=== PATIENT | male | born 1945 | race Caucasian/White ===

== ENCOUNTER 2017-08-22 16:08 | Emergency (ER) | payer OTHER ==
[~2017-08-22] VITALS: Ht 175.3 cm; Wt 89.4 kg
--- NOTE | ~2017-08-22 | EKG ---
[facility] [place] [address] ELECTROCARDIOGRAM REPORT Name: DANTE VALEAN A [id number] Admission: 08/22/17 Attend Phys: Discharge: 08/22/17 Date of : 47 Report #: [id number] THIS REPORT FOR: //name// [facility] ED Test Date: 2017-08-22 Test Time: 17:10:03 Pat Name: ROLAND VALE Department: Room: Gender: M Residential Designer: RUST : 1945 Requested By: Linda Armijo Order Number: [id number] MD: Cory Hadley Measurements Intervals [employer] Rate: 67 P: 44 OK: 186 QRS: -57 QRSD: 173 T: 53 QT: 419 QTc: 443 Interpretive Statements Sinus rhythm RBBB and LAFB LVH by voltage Septal [place] Compared to ECG 06/29/2013 16:44:43 Left ventricular hypertrophy now present Sinus tachycardia no longer present Electronically Signed On 08-23-2017 10:29:39 CDT by Cory Hadley [email or web address] <ELECTRONICALLY SIGNED> By: Cory Hadley MD 08/23/17 1029 1710 1710 MD ADRIANA Perera
[~2017-08-22 16:08] MED LIST: ACETAMINOPHEN325 M1 PO; ACETAMINOPHEN650 M5 PO; ADULT LOW DOSE81 MG PO; APAP500 PO; APAP650 PO; ASPIRIN325 PO; ATORVASTATIN CA40 MG PO; CARAFATE 1 GM TA1 GM PO; CARVEDILOL3.125 MG PO; CARVEDILOL6.25 MG PO; CHOLESTEROL MED; CLOPIDOGREL75 MG PO; COZAAR 25 MG TA25 M2 PO; CRESTOR20 MG PO; DM MED; EFFIENT10 MG PO; FERREX 150150 MG PO; FUROSEMIDE 40 M40 M1 PO; GLUCOPHAGE500 MG PO; HYDROCODON-ACE1 EAC7 PO; IRON325 PO; K-DUR10 MEQ PO; LEVEMIR SUBQ; MIRALAX255 GM PO; MOM; MOM PO; MULTI-DAY PLUS1 EACH PO; NOVOLOG100 UNIT/1 SUBQ; PERCOCET 5-3251 EACH PO; PERCOCET PO; PRAVASTATIN SOD10 MG; PRILOSEC 20 MG20 MG PO; REGLAN 10 MG TA10 MG PO; ZOFRAN4 MG PO
[2017-08-22 16:51] LABS: BASOPHILS 1.8 % (0.0-2.0); EOSINOPHILS 4.4 % (0.0-3.0); HEMATOCRIT 41.4 % (42.0-52.0); HEMOGLOBIN 14.5 gm/dL (14.0-18.0); LYMPHOCYTES 28.5 % (24.0-44.0); MCH 33.2 pg (26.0-34.0); MONOCYTES 7.3 % (1.0-8.0); PLATELET COUNT 316 thou/uL (150-400); RBC 4.35 mil/uL (4.50-6.00); RDW 13.6 % (10.5-14.5); WBC 8.5 thou/uL (4.0-11.0)
[2017-08-22 16:57] LABS: ANION GAP 9 mmol/L (7-16); BUN 14 mg/dL (7-18); CALCIUM 9.6 mg/dL (8.5-10.1); CHLORIDE 98 mmol/L (98-107); CO2 28 mmol/L (21-32); CREATININE 1.3 mg/dL (0.7-1.3); GLUCOSE 272 mg/dL (74-106); POTASSIUM 4.2 mmol/L (3.5-5.1); SODIUM 135 mmol/L (136-145)
[2017-08-22 17:06] LABS: TROPONIN-I < 0.04 ng/mL (<0.06)
[2017-08-22] MEDS ORDERED: ASPIRIN EC325 M1 PO (17:36)
== END 2017-08-22 18:06 | disposition home or self-care (01) ==
LOC: ER 16:08
PROVIDERS: Emergency Medicine
DX: R42 Dizziness and giddiness (principal); E11.9 Type 2 diabetes mellitus without complications; I10 Essential (primary) hypertension; E78.00 Pure hypercholesterolemia, unspecified; Z90.49 Acquired absence of other specified parts of digestive tract; Z88.6 Allergy status to analgesic agent; Z88.1 Allergy status to other antibiotic agents; Z88.8 Allergy status to other drugs, medicaments and biological substances; Z87.891 Personal history of nicotine dependence; Z79.4 Long term (current) use of insulin

== ENCOUNTER 2017-08-30 14:54 | Inpatient (IN) | payer OTHER ==
[~2017-08-30] VITALS: Ht 175.3 cm; Wt 85.0 kg
--- NOTE | ~2017-08-30 | HC ---
[facility] [place] [address] CONSULTATION Name: ROLAND VALE Room #: 216-P [facility]..#: [id number] Admission: 08/30/17 Attend Phys: Daniel Cervantes MD Discharge: 09/02/17 Date of : 47 Report #: [id number] THIS REPORT FOR: //name// CC: Daniel Elizondo DATE OF SERVICE: 08/31/2017 HISTORY OF PRESENT ILLNESS: This is a 71-year-old male patient who was evaluated by me for an episode of speech difficulty and some right facial droop. This came spontaneously, and it was moderately severe and then it resolved. The patient was discussed with Emergency Room physician who saw the patient in the Emergency Room, and the patient himself provided history. I discussed the patient with the nurses looking after this patient. The patient's symptoms are somewhat unusual. He thinks his symptoms are because of metformin he takes. This morning, he was having some nausea, vomiting, but was not having any dizziness. His dizziness is gone. REVIEW OF SYSTEMS: Indicates that he had a similar episode of dizziness about 8 days ago. There was no slurred speech at that time. He has multiple other problems. He had a prior history of stent. He has a history of diabetes. He has a history of hypertension and high cholesterol. He denies any prior history of stroke. He does have a history of cholecystectomy. He had a history of [place]. This was his relevant 14-point review of systems. He was nauseous when I saw him. He indicated he took some pill, which made him nauseous. Otherwise, he was not complaining of any new eye, ENT, cardiac, respiratory, , musculoskeletal, constitutional, dermatological, hematological, psychiatric, throat, allergic symptom associated with present symptomatology. PAST MEDICAL HISTORY: Negative for any stroke. FAMILY HISTORY: Negative for any early age stroke. SOCIAL HISTORY: He does not smoke or drink now. PHYSICAL EXAMINATION: Indicates he is alert. He is responsive. He can follow simple commands. His speech, concentration, fund of knowledge and memory are at his baseline. Cranial nerve examination 2-12 is unremarkable. His strength, sensation, reflexes and tone are symmetrical. There is no cerebellar sign. I could not have a very good look at the fundus because he is nauseous and is not able to cooperate. He is a reasonably well-built individual who does not have any dysmorphic features of eyes, ears and face. His vision and hearing look adequate. His pulses are somewhat difficult to feel, but he has no edema, cyanosis or jaundice. His cardiac examination does not appear to be showing any definite abnormality. No respiratory difficulty was noticed in this patient, and there was not any significant rhonchi on either side. [address] [address] CONSULTATION Name: ROLAND VALE Room #: 216-P [facility] IN M.R.#: [id number] Admission: 08/30/17 Attend Phys: Daniel Cervantes MD Discharge: 09/02/17 Date of : 47 Report #: [id number] VITAL SIGNS: His blood pressure is 152/79, respirations 16, pulse is 62, temperature is 98.6. LABORATORY DATA: His white count is 9.3. His CT angiography was done and that showed atherosclerotic disease, but it appeared to be less than 50%. He is already on aspirin and Plavix. IMPRESSION: 1. Symptoms suggestive of transient ischemic attack in the left internal carotid artery distribution. 2. Basilar artery is somewhat narrow, but appeared to be patent and it is unlikely to be the etiology of the patient's symptoms, but need to be excluded. 3. He is having so many symptoms. It is not even certain how much of symptoms are because of transient ischemic attack and how much is because of something else. I talked to him and I told him that he needs further workup and he is agreeable to that. His last lipid profile has indicated a cholesterol of 160 and that also need to be worked up. RECOMMENDATIONS: 1. MRI of the brain and MRA of the head and neck. We will go ahead and do the MRA also to look at the basilar artery as well as carotid with another imaging study. 2. Echocardiogram. 3. Repeat lipid profile. 4. He is already on aspirin and Plavix from cardiology perspective, and we can continue that for the time being. 5. If he has further symptoms, then further workup and management can be done, but this patient was never a TPA candidate because he had a TIA. Even if he has a stroke, he is not a candidate for any intervention at the moment until he has more pronounced symptoms, but he does need further workup. All of it was discussed with the patient, and he is agreeable with this plan, and we will follow this plan. Thank you very much for this referral, and the patient was discussed with the nurses looking after this patient. <ELECTRONICALLY SIGNED> By: Magno Beltre MD 09/09/17 1648 1102 1211 Magno Beltre MD /nt
--- NOTE | ~2017-08-30 | EKG ---
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[facility] : 1945 Requested By: Oleksandr Campbell Order Number: [id number] MD: Walter Valverde Measurements Intervals [place] Rate: 69 P: 36 MI: 176 QRS: -55 QRSD: 170 T: 47 QT: 414 QTc: 444 Interpretive Statements Sinus rhythm RBBB and LAFB Septal [place], age indeterminate Compared to ECG 08/22/2017 17:10:03 No significant change was found Electronically Signed On 08-31-2017 12:59:40 CDT by Walter Valverde [email or web address] <ELECTRONICALLY SIGNED> By: Walter Valverde MD, [facility] 08/31/17 1259 1517 151 Walter Valverde MD, [facility] /EPI
--- NOTE | ~2017-08-30 | HC ---
[facility] [place] [address] CONSULTATION Name: ROLAND VALE Room #: 216-P [facility]..#: [id number] Admission: 08/30/17 Attend Phys: Daniel Cervantes MD Discharge: 09/02/17 Date of : 47 Report #: [id number] THIS REPORT FOR: //name// CC: Daniel Elizondo DATE OF SERVICE: 09/02/2017 INDICATION: Cardiomyopathy. HISTORY OF PRESENT ILLNESS: This is a 71-year-old gentleman with a history of MIs, PCI, CABG, ischemic cardiomyopathy, diabetes mellitus, presenting with a TIA. About a week before admission, he reported to the ER with complaints of left-sided weakness. By the time he arrived to the Emergency Room, his weakness had resolved. He was supposed to take Plavix and aspirin. However, he was not taking Plavix, has a history of noncompliance. Then, a week later while eating at a restaurant, he felt dizziness and weakness. His reported that he started to mumble and the right side of his face drooped. This resolved within 10 minutes as well. He was admitted for recurrent TIA. From a cardiac standpoint, he offers no complaints of angina or dyspnea. However, it is difficult to assess his functional capacity. An echo reveals EF in the 30%-35% range, with mild to moderate aortic stenosis. There is no history of any congestive symptoms. MEDICATIONS AT HOME: Unclear at this time, he was taking aspirin, insulin regimen, Crestor 20 mg and carvedilol 3.125. PAST MEDICAL HISTORY: Initial anterior VA in 12/2012, although he presented a day after his initial onset of symptoms. Four months later, he presented with unstable symptoms, he did undergo 4-vessel CABG. History of diabetes mellitus, hypertension, hypercholesterolemia and history of noncompliance. ALLERGIES: NSAIDs and RAMIPRIL. SOCIAL HISTORY: Denies tobacco use. FAMILY HISTORY: Negative for premature CAD. REVIEW OF SYSTEMS: A full 10-point review of systems performed. Only the pertinent positives and negatives are described in the HPI. PHYSICAL EXAMINATION: VITAL SIGNS: Blood pressure is 140/80, heart rate is 63 beats per minute. GENERAL APPEARANCE: This is a mildly overweight male in no acute distress. HEENT: Normocephalic, atraumatic. Oral mucosa moist. [address] [address] CONSULTATION Name: ROLAND VALE Room #: 216-P [facility] IN M.R.#: [id number] Admission: 08/30/17 Attend Phys: Daniel Cervantes MD Discharge: 09/02/17 Date of : 47 Report #: [id number] NECK: Supple. LUNGS: Clear to auscultation. CARDIAC: Regular rate and rhythm; S1, S2 positive; 1/6 systolic murmur. ABDOMEN: Soft, nontender. EXTREMITIES: No cyanosis, no edema. IMAGING: ECG reveals sinus rhythm, right bundle-branch block, anteroseptal VA. LABORATORY VALUES: White count is 8.4, hemoglobin is 13.6, creatinine is 0.9. ASSESSMENT AND PLAN: 1. Ischemic cardiomyopathy, he has a known history of ejection fraction in the 35% range. He offers no complaints of congestion. He was only taking carvedilol, was previously prescribed losartan, which he apparently is not taking. He was given losartan in the hospital, which dropped his pressure. At this time, I would continue with carvedilol only. 2. Coronary artery disease/myocardial infarction/coronary artery bypass graft, stable with no angina symptoms. We will follow up with an ischemic evaluation as an outpatient. Continue with aspirin. 3. Transient ischemic attack, he was not taking Plavix and this will be prescribed. We will proceed with an outpatient event monitor, may require an implantable monitor as well to rule out PAF in view of his history of recurrent transient ischemic attack. 4. Hypertension, the blood pressure is stable at this time. It dropped with 1 dose of losartan. 5. Hypercholesterolemia, continue with statin therapy. 6. Diabetes, continue with his insulin regimen. <ELECTRONICALLY SIGNED> By: Cory Hadley MD 09/03/17 0801 0859 1015 Cory Hadley MD /nt
--- NOTE | ~2017-08-30 | 2DMMODE ---
[facility] [address] [place] [address] 2 D/M-MODE ECHOCARDIOGRAM Name: ROLAND VALE Room #: 216-P [facility] IN [facility]#: [id number] Admission: 08/30/17 Attend Phys: Daniel Cervantes MD Discharge: Date of : 47 Date of Service: 09/01/17 1230 Report #: [id number] THIS REPORT FOR: //name// APPROVED REPORT Study performed: 09/01/2017 11:07:38 EXAM: Comprehensive 2D, Doppler, and color-flow Echocardiogram Patient Location: Echo lab Room #: [facility] Status: routine BSA: 2.01 HR: 61 bpm BP: 145/81 mmHg Other Information Study Quality: Good Indications Diabetes Murmur CAD Hypertension/HDD 2D Dimensions RVDd: 30.34 mm LVEF(%): 48.51 (>50%) IVSd: 12.64 (7-11mm) LVOT Diam: 22.51 (18-24mm) LVDd: 47.43 mm PWd: 11.58 (7-11mm) Ascending Ao: 32.87 (22-36mm) LVDs: 35.84 (25-40mm) Aortic Root: 30.46 mm Marques's LVEF: 48.51 % Volumes Left Atrial Volume (Systole) Single Plane 4CH: 56.15 mL Single Plane 2CH: 59.35 mL LA ESV Index: 32.00 mL/m2 Aortic Valve AoV Peak Sahil.: 2.33 m/s AO Peak Gr.: 21.73 mmHg LVOT Max P.27 mmHg AO Mean Gr.: 11.05 mmHg LVOT Mean P.25 mmHg AO V2 Mean: 1.56 m/s LVOT Max V: 0.75 m/s AO V2 VTI: 47.43 cm LVOT Mean V: 0.52 m/s [facility] [address] [employer] [place] [address] 2 D/M-MODE ECHOCARDIOGRAM Name: ROLAND VALE Room #: 216-P [facility] IN .R.#: [id number] Admission: 08/30/17 Attend Phys: Daniel Cervantes MD Discharge: Date of : 47 Date of Service: 09/01/17 1230 Report #: [id number] CARLYN (VTI): 1.33 cm2 LVOT V1 VTI: 15.90 cm CARLYN Vmax: 1.29 cm2 SV (LVOT): 63.24 mL Mitral Valve E/A Ratio: 0.8 MV Decel. Time: 302.17 ms MV E Max Sahil.: 0.57 m/s MV A Sahil.: 0.69 m/s MV PHT: 87.63 ms IVRT: 162.63 ms Pulmonary Valve PV Peak Sahil.: 1.22 m/s PV Peak Gr.: 5.98 mmHg Pulmonary Vein P Vein S: 0.60 m/s P Vein A: 0.11 m/s P Vein D: 0.37 m/s P Vein A Dur.: 107.3 msec P Vein S/D Ratio: 1.62 Left Ventricle The left ventricle is normal size. Mild concentric left ventricular hypertrophy. Left ventricular systolic function is moderately decreased. LVEF is 30-35%. Mild diastolic dysfunction is present (impaired relaxation pattern). Right Ventricle The right ventricle is normal size. Right ventricle is hypokinetic. Atria The left atrium size is normal. The right atrium size is normal. Aortic Valve The Aortic valve is sclerotic. No aortic regurgitation is present. There is mild to moderate valvular aortic stenosis. Calculated aortic valve area is 1.3 cm2 with maximum pressure gradient of 22 mmHg and mean pressure gradient of 11 mmHg. Mitral Valve The mitral valve is normal in structure. Trace mitral regurgitation. No evidence of mitral valve stenosis. Tricuspid Valve The tricuspid valve is normal in [place] [address] 2 D/M-MODE ECHOCARDIOGRAM Name: ROLAND VALE Room #: 216-P [facility] IN M.R.#: [id number] Admission: 08/30/17 Attend Phys: Daniel Cervantes MD Discharge: Date of : 47 Date of Service: 09/01/17 1230 Report #: [id number] regurgitation. Unable to assess PA pressure. Pulmonic Valve The pulmonary valve is normal in structure. Mild pulmonic regurgitation. Great Vessels The aortic root is normal in size. IVC is not visualized. Pericardium There is no pericardial effusion. <Conclusion> The left ventricle is normal size. Mild concentric left ventricular hypertrophy. LVEF is 30-35%. Mild diastolic dysfunction is present (impaired relaxation pattern). The right ventricle is normal size. The Aortic valve is sclerotic. There is mild to moderate valvular aortic stenosis. Calculated aortic valve area is 1.3 cm2 with maximum pressure gradient of 22 mmHg and mean pressure gradient of 11 mmHg. Trace mitral regurgitation. The tricuspid valve is normal in structure. There is no pericardial effusion. <ELECTRONICALLY SIGNED> By: Bernardo Murillo MD, FACC 09/01/17 1230 1230 1230 Bernardo Murillo MD, FACC /INF
[2017-08-30 14:54] VITALS: BP 90/54
[~2017-08-30 14:54] MED LIST changes: +ASPIRIN EC325 M1 PO
[2017-08-30 15:25] LABS: ABSOLUTE NEUTROPHILS 5.5 thou/uL (1.4-8.2); BASOPHILS 0.8 % (0.0-2.0); EOSINOPHILS 3.7 % (0.0-3.0); HEMATOCRIT 42.1 % (42.0-52.0); HEMOGLOBIN 14.6 gm/dL (14.0-18.0); LYMPHOCYTES 25.9 % (24.0-44.0); MCH 33.2 pg (26.0-34.0); MCHC 34.8 g/dL (28.0-37.0); MCV 95.5 fL (80.0-100.0); MONOCYTES 6.3 % (1.0-8.0); PLATELET COUNT 315 thou/uL (150-400); POLYS 63.3 % (36.0-66.0); RBC 4.41 mil/uL (4.50-6.00); RDW 13.3 % (10.5-14.5); WBC 8.7 thou/uL (4.0-11.0)
[2017-08-30 15:34] LABS: ANION GAP 11 mmol/L (7-16); BUN 19 mg/dL (7-18); CALCIUM 9.5 mg/dL (8.5-10.1); CHLORIDE 99 mmol/L (98-107); CO2 26 mmol/L (21-32); CREATININE 1.2 mg/dL (0.7-1.3); GLUCOSE 308 mg/dL (74-106); POTASSIUM 4.1 mmol/L (3.5-5.1); SODIUM 136 mmol/L (136-145)
[2017-08-30 15:43] LABS: ALBUMIN 3.3 g/dL (3.4-5.0); SGOT 15 U/L (15-37); SGPT 18 U/L (30-65); TOTAL BILIRUBIN 0.9 mg/dL (<0.1-1.0); TOTAL PROTEIN 7.7 g/dL (6.4-8.2); TROPONIN-I < 0.04 ng/mL (<0.06)
[2017-08-30 16:06] LABS: APTT 23.7 Seconds (24.5-32.8); PROTIME 9.4 Seconds (9.3-11.4)
[2017-08-30 17:48] VITALS: BP 131/53
[2017-08-30 18:10] VITALS: BP 124/69
[2017-08-30 19:47] VITALS: BP 148/83
[2017-08-31] VITALS (7 sets, daily range): BP systolic 110–152; BP diastolic 58–84
[2017-08-31 04:04] LABS: CALCIUM 9.1 mg/dL (8.5-10.1); CREATININE 0.9 mg/dL (0.7-1.3); POTASSIUM 3.4 mmol/L (3.5-5.1)
[2017-08-31 04:33] LABS: HEMOGLOBIN 13.4 gm/dL (14.0-18.0); MCH 32.8 pg (26.0-34.0); MCHC 34.3 g/dL (28.0-37.0); MCV 95.6 fL (80.0-100.0); RBC 4.08 mil/uL (4.50-6.00); RDW 13.3 % (10.5-14.5); WBC 9.3 thou/uL (4.0-11.0)
[2017-09-01 04:19] LABS: BASOPHILS 1.5 % (0.0-2.0); EOSINOPHILS 4.7 % (0.0-3.0); HEMATOCRIT 39.7 % (42.0-52.0); HEMOGLOBIN 13.8 gm/dL (14.0-18.0); LYMPHOCYTES 36.9 % (24.0-44.0); MCH 33.4 pg (26.0-34.0); MCHC 34.8 g/dL (28.0-37.0); MCV 96.1 fL (80.0-100.0); MONOCYTES 8.4 % (1.0-8.0); PLATELET COUNT 299 thou/uL (150-400); POLYS 48.5 % (36.0-66.0); RBC 4.13 mil/uL (4.50-6.00); RDW 13.4 % (10.5-14.5); WBC 8.2 thou/uL (4.0-11.0)
[2017-09-01 04:22] VITALS: BP 127/68
[2017-09-01 04:24] LABS: CALCIUM 9.3 mg/dL (8.5-10.1); CREATININE 0.9 mg/dL (0.7-1.3); POTASSIUM 3.5 mmol/L (3.5-5.1)
[2017-09-01 07:20] VITALS: BP 145/81
[2017-09-01 10:50] VITALS: BP 120/69
[2017-09-01 15:33] VITALS: BP 91/52
[2017-09-01 19:33] VITALS: BP 131/66
[2017-09-02 04:01] VITALS: BP 144/80
[2017-09-02 05:22] LABS: ABSOLUTE NEUTROPHILS 4.3 thou/uL (1.4-8.2); BASOPHILS 2.3 % (0.0-2.0); EOSINOPHILS 5.9 % (0.0-3.0); HEMATOCRIT 39.2 % (42.0-52.0); HEMOGLOBIN 13.6 gm/dL (14.0-18.0); LYMPHOCYTES 32.1 % (24.0-44.0); MCHC 34.7 g/dL (28.0-37.0); MCV 95.2 fL (80.0-100.0); MONOCYTES 8.7 % (1.0-8.0); PLATELET COUNT 297 thou/uL (150-400); RBC 4.12 mil/uL (4.50-6.00); RDW 13.3 % (10.5-14.5); WBC 8.4 thou/uL (4.0-11.0)
[2017-09-02 05:56] LABS: ANION GAP 8 mmol/L (7-16); BUN 15 mg/dL (7-18); CALCIUM 9.5 mg/dL (8.5-10.1); CHLORIDE 102 mmol/L (98-107); CHOLESTEROL 205 mg/dL (<200); CO2 26 mmol/L (21-32); CREATININE 0.9 mg/dL (0.7-1.3); GLUCOSE 223 mg/dL (74-106); HDL CHOLESTEROL 40 mg/dL (>40); LDL CHOLESTEROL 131 mg/dL (<100); POTASSIUM 3.7 mmol/L (3.5-5.1); SODIUM 136 mmol/L (136-145); TC:HDL 5.1 Ratio (Not establshd); TRIGLYCERIDE 170 mg/dL (<150); VLDL 34 mg/dL (<40)
[2017-09-02 06:09] LABS: SERUM ASSESSMENT Clear
[2017-09-02 06:21] LABS: TSH 2.613 uIU/mL (0.358-3.740)
[2017-09-02 07:05] VITALS: BP 161/88
[2017-09-02 09:26] VITALS: BP 113/67
[2017-09-02 09:27] VITALS: BP 101/60
[2017-09-02] MEDS ORDERED: COREG6.25 MG PO (10:24)
[2017-09-02] MEDS ORDERED: GLIPIZIDE 10 MG10 MG PO (10:24)
[2017-09-02] MEDS ORDERED: ASPIRIN325 PO (10:25)
[2017-09-02] MEDS ORDERED: ATORVASTATIN CA40 MG PO ×3 (10:25→11:55)
[2017-09-02] MEDS ORDERED: CLOPIDOGREL75 MG PO (11:06)
[2017-09-02 11:28] VITALS: BP 101/60; BP 125/7
== END 2017-09-02 13:46 | disposition home or self-care (01) | DRG 69 ==
LOC: ER 14:54 → EROBS 17:34 → 2N 17:34 → ENTRNSPT 09-02 13:33 → EDTRNSPTSTS 09-02 13:36 → 2N 09-02 13:46
PROVIDERS: Emergency Medicine; Hospitalist; Psychiatry & Neurology Neuromuscular Medicine
PROC: B24BZZ4 Ultrasonography of Heart with Aorta, Transesophageal (ICD-10-PCS; principal; 2017-09-01)
DX: G45.9 Transient cerebral ischemic attack, unspecified (principal); I50.20 Unspecified systolic (congestive) heart failure; E11.9 Type 2 diabetes mellitus without complications; I25.5 Ischemic cardiomyopathy; I11.0 Hypertensive heart disease with heart failure; I25.10 Atherosclerotic heart disease of native coronary artery without angina pectoris; R01.1 Cardiac murmur, unspecified; E78.00 Pure hypercholesterolemia, unspecified; I25.2 Old myocardial infarction; Z90.49 Acquired absence of other specified parts of digestive tract; Z95.5 Presence of coronary angioplasty implant and graft; Z95.1 Presence of aortocoronary bypass graft; Z79.4 Long term (current) use of insulin; Z79.82 Long term (current) use of aspirin; Z79.02 Long term (current) use of antithrombotics/antiplatelets; Z79.84 Long term (current) use of oral hypoglycemic drugs; Z79.899 Other long term (current) drug therapy; Z87.891 Personal history of nicotine dependence; Z88.8 Allergy status to other drugs, medicaments and biological substances; Z23 Encounter for immunization
CPT/HCPCS: 10081

== ENCOUNTER 2017-09-08 11:40 | Inpatient (IN) | payer OTHER ==
[~2017-09-08] VITALS: Ht 175.3 cm; Wt 85.4 kg
--- NOTE | ~2017-09-08 | HC ---
[facility] [place] [address] CONSULTATION Name: ROLAND VALE Room #: 349-I ADM IN ..#: [id number] Admission: 09/08/17 Attend Phys: Donato Warner MD Discharge: Date of : 47 Report #: [id number] THIS REPORT FOR: //name// CC: Donato Elizondo DATE OF SERVICE: 09/09/2017 HISTORY OF PRESENT ILLNESS: The patient is a 71-year-old male who was recently admitted with a TIA being discharged on 09/02/2017. He ended being readmitted with right-sided visual changes, aphasia and right-sided weakness. He has been evaluated by Neurology. MRI scan showed an acute recent lacunar type infarct, left basal ganglia. He does have 50% stenosis of left carotid artery. He is undergoing a AMANDA. His blood pressure is being monitored to maintain appropriate cerebral perfusion. He does have right-sided weakness with functional deficits and visual changes and we are seeing him in rehabilitation medicine consultation. PAST MEDICAL HISTORY: Includes a prior mini stroke/TIA. He does have diabetes mellitus type 2, coronary artery bypass graft in 2013, CHF, cardiomyopathy. PAST SURGICAL HISTORY: Includes a cholecystectomy as well as the CABG as noted above. ALLERGIES: NONSTEROIDALS, VANCOMYCIN AND RAMIPRIL. HABITS: Former tobacco, quit greater than a year ago. Alcohol on special occasions. SOCIAL HISTORY: The patient lives in a house with his , 2 steps in, 12 inside, second floor bedroom. Did not utilize assistive devices premorbidly. does not work outside the home. REVIEW OF SYSTEMS: Did not offer any complaints of chest pain, shortness of breath, abdominal discomfort. Biggest frustration is the right-sided weakness. PHYSICAL EXAMINATION: GENERAL: He is a pleasant 71-year-old male, in no obvious distress. He speaks good German. VITAL SIGNS: Last recorded temperature is 97.6, pulse 70, respirations 20, blood pressure 130/67. NEUROLOGIC: He is alert, oriented, pleasant, cooperative. He has a slightly depressed right nasolabial fold. EOMs appeared to be full. He does have what appears to be a right upper quadrant hemianopsia more than the right lower quadrant to confrontation. He is able to verbalize his basic needs, no obvious word finding deficits. He has functional range of motion and strength of the [facility] [address] [place] [address] CONSULTATION Name: ROLAND VALE Room #: 349-I ADM IN M.R.#: [id number] Admission: 09/08/17 Attend Phys: Donato Warner MD Discharge: Date of : 47 Report #: [id number] left upper and left lower extremity without obvious focal weakness. DTRs are 1. Right upper extremity, he has some clumsiness. Proximal strength is a grade 3 to 3+, distally is more of a grade 2+ to 3- He has a very poor computer aided design operator. Very limited dexterity of that right hand with definite clumsiness with attempted movement. He is weak and wrist extension less than antigravity. As far as the right lower extremity, he has functional range of motion. Strength is probably grade 4-/5. DTRs are 1. There is no clonus. Negative Bland's. Sensory examination was reasonably intact to simultaneous stimulation both upper and lower extremities. Functionally, he has been contact guard with sit to stand. Gait, min assist 10 feet. He has some right knee instability and is noted to be dragging his right foot. ASSESSMENT: A 71-year-old right-handed male with the following problem list: 1. Acute/recent lacunar infarct, left basal ganglia. 2. Right hemiparesis, upper extremity greater than lower extremity. 3. Right homonymous hemianopsia. Appears to have more of the right upper quadrantanopia. 4. Previously noted aphasia, appears to be improving. We will need to have speech therapy involved. 5. A 50% stenosis of left carotid artery. Workup continues. 6. History of coronary artery disease with prior coronary artery bypass graft. 7. Diabetes mellitus. 8. Hyperlipidemia. 9. Hypertension. PLAN: We will add speech therapy to evaluate. Therapies to further assess regarding his functional deficits. We would certainly recommend an acute in-hospital inpatient rehabilitation stay as he further medically stabilizes. Discussion with physical therapy earlier today. We will be glad to follow along with you regarding his rehab therapy needs. By: 1456 18 Saroj Puente MD /RADHA
--- NOTE | ~2017-09-08 | HC ---
[facility] [place] [address] CONSULTATION Name: ROLAND VALE Room #: 349-I ADM IN .R.#: [id number] Admission: 09/08/17 Attend Phys: Donato Warner MD Discharge: Date of : 47 Report #: [id number] THIS REPORT FOR: //name// CC: Donato Elizondo DATE OF SERVICE: 09/08/2017 HISTORY OF PRESENT ILLNESS: This is a 71-year-old male patient who was initially seen by me in the Emergency Room and subsequently I saw him again this evening. This patient was admitted with what looks like pretty prominent symptoms on the right side as well as speech difficulty. His symptoms were severe right hemianopsia, aphasia and right hemiplegia. The patient just had a full workup recently and he was having dizziness and was even having some issues with speech difficulty. His symptoms deteriorated in the Emergency Room and his blood pressure was running about 110 systolic. He was being prepared to give TPA, but then his symptoms resolved. When I saw him second time, he also had no symptoms and he was without any symptom. REVIEW OF SYSTEMS: Indicate that he has recently been admitted with similar symptoms. He does have about 50% stenosis of the left carotid artery. He is already on aspirin, Plavix and statin. His blood pressure fluctuates. I do not think he takes blood pressure meds very properly or on a regular basis. Positive for similar episode and he had this episode in spite of being on aspirin and Plavix, does have a history of diabetes. This was a relevant 14-point review of system. PAST MEDICAL HISTORY: Positive for this episode for which he was admitted. FAMILY HISTORY: Unremarkable. SOCIAL HISTORY: He indicates that he does not drink any alcohol except on special occasions and he does not smoke. PHYSICAL EXAMINATION: The patient's examination was carried out numerous times and his final examination was, he was alert and responsive. His speech, concentration, fund of knowledge and memory was at his baseline. Cranial nerve examination 2-12 was unremarkable. Initially, he had no aphasia. Initially, he had some hemianopsia, but subsequently no hemianopsia. His reflexes were symmetrical. His cardiac examination is unremarkable. Respiratory examination is unremarkable. When I saw him, his blood pressure was low, but then it came up and symptoms correlated with the increase in blood pressure. IMPRESSION: This patient has symptoms suggestive of ischemic disease in the left cerebral hemisphere. He has only 50% stenosis, which is borderline to do any intervention. I think the plan should be to keep his blood pressure [facility] [address] [place] [address] CONSULTATION Name: ROLAND VALE Room #: 349-I ADM IN ..#: [id number] Admission: 09/08/17 Attend Phys: Donato Warner MD Discharge: Date of : 47 Report #: [id number] somewhat high. RECOMMENDATIONS: Presently, we will observe him and see if any symptoms reoccur and I discussed all his options with him including the TPA option. He wants to follow this conservative approach and we will do that. More than 50 minutes of time was spent taking care of this patient today and majority of the time was spent counseling this patient on multiple aspects of the care in this patient. Thank you very much. <ELECTRONICALLY SIGNED> By: Magno Beltre MD 09/09/17 1648 24 2239 Magno Beltre MD /nt
--- NOTE | ~2017-09-08 | TEE ---
[facility] [address] [address] TRANSESOPHAGEAL ECHOCARDIOGRAM Name: ROLAND VALE Room #: 349-I ADM IN M.R.#: [id number] Admission: 09/08/17 Attend Phys: Donato Warner, Discharge: Date of : 47 Date of Service: 09/09/17 0841 Report #: [id number] THIS REPORT FOR: //name// APPROVED REPORT Study performed: 09/09/2017 07:47:48 EXAM: Transesophageal Echocardiogram Patient Location: [facility] Room #: 349 Status: routine BSA: 2.01 HR: 67 bpm BP: 122/67 mmHg Rhythm: NSR Other Information Study Quality: Good Indications Aortic Valve Disease CVA/TIA Cardiomyopathy Echo Enhancing Agent Indication: Rule out Shunt Agent(s) / Amount(s) Used: Agitated Saline 7 cc Procedure After obtaining informed consent, patient underwent transesophageal echo in the [employer]. Type of Sedation : Conscious Sedation Sedation was administered by Aleah Tovar RN. Sedation start time: 754 Case end Time: 800 Sedation was achieved intravenously with: Versed (2) Fentanyl (50) Transesophageal probe was inserted and advanced into esophagus without difficulty by Walter Valverde MD. Echo enhancement indication: R/O Septal defect. Echo enhancement agent administered: Agitated Saline The AMANDA was performed without complications. Throughout the procedure, the blood pressure, pulse oximetry, cardiac rhythm, and rate were monitored. The patient tolerated the procedure without adverse effects. Recovery from conscious sedation was uneventful and vital signs were [facility] [address] [place] [address] TRANSESOPHAGEAL ECHOCARDIOGRAM Name: AKANKSHAROLAND Room #: 349-I [facility] IN M.R.#: [id number] Admission: 09/08/17 Attend Phys: Donato Warner, Discharge: Date of : 47 Date of Service: 09/09/17 0841 Report #: [id number]. Left Ventricle The left ventricle is normal size. Mild concentric left ventricular hypertrophy. Left ventricular systolic function is mildly decreased. LVEF 45-50%. Mild diastolic dysfunction is present (impaired relaxation pattern). Right Ventricle The right ventricle is normal size. The right ventricular systolic function is normal. Atria Left atrium is dilated. No masses or clots in the left atrium or left atrial appendage No shunting by contrast bubble injection. The right atrium size is normal. Aortic Valve The aortic valve is moderately calcified, trileaflet No aortic regurgitation is present. Mild to moderate aortic stenosis. Mitral Valve The mitral valve is normal in structure. No mitral regurgitation. No evidence of mitral valve stenosis. Tricuspid Valve The tricuspid valve is normal in structure. Trace tricuspid regurgitation. Pulmonic Valve The pulmonary valve is normal in structure. Mild pulmonic regurgitation. Great Vessels The aortic root is normal in size. The ascending aorta is normal in size. Pericardium There is no pericardial effusion. <Conclusion> Left ventricular systolic function is mildly decreased. LVEF 45-50%. Left atrium is dilated. No masses or clots in the left atrium or left atrial appendage No shunting by contrast bubble injection. [facility] [address] [place] [address] TRANSESOPHAGEAL ECHOCARDIOGRAM Name: ROLAND VALE Room #: 349-I ADM IN .R.#: [id number] Admission: 09/08/17 Attend Phys: Donato Warner, Discharge: Date of : 47 Date of Service: 09/09/17840 Report #: [id number] The aortic valve is moderately calcified, trileaflet. Mild to moderate aortic stenosis. No aortic regurgitation The mitral valve is normal in structure. No mitral regurgitation. The ascending aorta is normal in size. Mild atherosclerotic changes There is no pericardial effusion. <ELECTRONICALLY SIGNED> By: Walter Valverde MD, FACC 09/09/17840 0 0 Walter Valverde MD, FACC /INF
--- NOTE | ~2017-09-08 | EKG ---
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
[~2017-09-08 11:40] MED LIST changes: +COREG6.25 MG PO; +GLIPIZIDE 10 MG10 MG PO
[2017-09-08 12:06] VITALS: BP 112/62
[2017-09-08 12:20] LABS: HEMATOCRIT 40.3 % (42.0-52.0); HEMOGLOBIN 14.2 gm/dL (14.0-18.0); MCH 33.7 pg (26.0-34.0); MCHC 35.3 g/dL (28.0-37.0); MCV 95.5 fL (80.0-100.0); RBC 4.22 mil/uL (4.50-6.00); RDW 12.9 % (10.5-14.5); WBC 9.8 thou/uL (4.0-11.0)
[2017-09-08 12:22] LABS: POC CA IONIZED 4.4 mg/dL (4.5-5.3); POC CREATININE 0.9 mg/dL (0.6-1.3); POC HEMOGLOBIN 14.3 g/dL (14.0-18.0); POC POTASSIUM 4.6 mmol/L (3.5-5.1)
[2017-09-08 12:29] LABS: ANION GAP 7 mmol/L (7-16); BUN 17 mg/dL (7-18); CALCIUM 9.4 mg/dL (8.5-10.1); CHLORIDE 100 mmol/L (98-107); CO2 28 mmol/L (21-32); CREATININE 1.2 mg/dL (0.7-1.3); GLUCOSE 302 mg/dL (74-106); POTASSIUM 4.9 mmol/L (3.5-5.1); SODIUM 135 mmol/L (136-145)
[2017-09-08 12:32] LABS: APTT 27.2 Seconds (24.5-32.8); PROTIME 9.9 Seconds (9.3-11.4)
[2017-09-08 12:35] LABS: TROPONIN-I < 0.04 ng/mL (<0.06)
[2017-09-08 16:30] VITALS: BP 136/76
[2017-09-08 17:06] VITALS: BP 141/77
[2017-09-08 20:00] VITALS: BP 128/59
[2017-09-09] VITALS (12 sets, daily range): BP systolic 101–146; BP diastolic 60–83
[2017-09-09 05:40] LABS: HEMOGLOBIN 13.4 gm/dL (14.0-18.0); MCH 32.9 pg (26.0-34.0); MCHC 34.3 g/dL (28.0-37.0); MCV 96.1 fL (80.0-100.0); RBC 4.06 mil/uL (4.50-6.00); RDW 12.8 % (10.5-14.5); WBC 12.4 thou/uL (4.0-11.0)
[2017-09-09 05:42] LABS: CALCIUM 9.1 mg/dL (8.5-10.1); CREATININE 0.9 mg/dL (0.7-1.3); MAGNESIUM 1.5 mg/dL (1.8-2.4); POTASSIUM 4.2 mmol/L (3.5-5.1)
[2017-09-10] VITALS (7 sets, daily range): BP systolic 129–160; BP diastolic 70–82
[2017-09-10 05:39] LABS: CALCIUM 8.9 mg/dL (8.5-10.1); CREATININE 0.9 mg/dL (0.7-1.3); MAGNESIUM 1.5 mg/dL (1.8-2.4); POTASSIUM 3.6 mmol/L (3.5-5.1)
[2017-09-10 05:43] LABS: HEMATOCRIT 37.7 % (42.0-52.0); HEMOGLOBIN 12.8 gm/dL (14.0-18.0); MCH 32.7 pg (26.0-34.0); MCHC 33.8 g/dL (28.0-37.0); MCV 96.6 fL (80.0-100.0); RBC 3.9 mil/uL (4.50-6.00); RDW 13.3 % (10.5-14.5); WBC 9.6 thou/uL (4.0-11.0)
[2017-09-11 03:20] VITALS: BP 151/71
[2017-09-11 05:17] LABS: HEMATOCRIT 39.4 % (42.0-52.0); HEMOGLOBIN 13.5 gm/dL (14.0-18.0); MCH 32.8 pg (26.0-34.0); MCHC 34.2 g/dL (28.0-37.0); RBC 4.1 mil/uL (4.50-6.00); RDW 13.2 % (10.5-14.5); WBC 11.7 thou/uL (4.0-11.0)
[2017-09-11 05:29] LABS: CALCIUM 9.5 mg/dL (8.5-10.1); CREATININE 0.8 mg/dL (0.7-1.3); MAGNESIUM 1.4 mg/dL (1.8-2.4); POTASSIUM 3.5 mmol/L (3.5-5.1)
[2017-09-11 07:51] VITALS: BP 162/76
[2017-09-11 11:30] VITALS: BP 142/74
[2017-09-11] MEDS ORDERED: TYLENOL325 MG PO (13:06)
[2017-09-11] MEDS ORDERED: ENOXAPARIN40 MG/0.1 SUBQ (13:06)
[2017-09-11 15:00] VITALS: BP 148/79
== END 2017-09-11 18:15 | DRG 62 ==
LOC: ER 11:40 → 3W 13:57 → EROBS 13:57 → 3W 16:54
PROVIDERS: Emergency Medicine; Internal Medicine
PROC: 3E04317 Introduction of Other Thrombolytic into Central Vein, Percutaneous Approach (ICD-10-PCS; principal; 2017-09-08)
PROC: B24BZZ4 Ultrasonography of Heart with Aorta, Transesophageal (ICD-10-PCS; 2017-09-09)
PROC: 5A1935Z Respiratory Ventilation, Less than 24 Consecutive Hours (ICD-10-PCS; 2017-09-09)
DX: I63.9 Cerebral infarction, unspecified (principal); I42.9 Cardiomyopathy, unspecified; G81.91 Hemiplegia, unspecified affecting right dominant side; I50.22 Chronic systolic (congestive) heart failure; H53.461 Homonymous bilateral field defects, right side; E78.5 Hyperlipidemia, unspecified; I25.10 Atherosclerotic heart disease of native coronary artery without angina pectoris; I11.0 Hypertensive heart disease with heart failure; I25.5 Ischemic cardiomyopathy; I65.21 Occlusion and stenosis of right carotid artery; M10.9 Gout, unspecified; E11.9 Type 2 diabetes mellitus without complications; Z88.1 Allergy status to other antibiotic agents; Z88.8 Allergy status to other drugs, medicaments and biological substances; Z95.1 Presence of aortocoronary bypass graft; Z90.49 Acquired absence of other specified parts of digestive tract; Z87.891 Personal history of nicotine dependence
CPT/HCPCS: 10879

== ENCOUNTER 2017-09-11 11:57 | Inpatient (IN) | payer OTHER ==
[~2017-09-11] VITALS: Ht 175.3 cm; Wt 83.3 kg
--- NOTE | ~2017-09-11 | PLAN ---
[place] [address] REHAB UNIT PLAN OF CARE Name: ROLAND VALE Room #: 515-P ADM IN M.R.#: [id number] Admission: 09/11/17 Attend Phys: Saroj Puente MD Discharge: Date of : 47 Report #: [id number] THIS REPORT FOR: //name// CC: Saroj Elizondo DATE OF SERVICE: 09/13/2017 SUBJECTIVE: The patient was seen in followup. He was seen earlier, was in no distress. OBJECTIVE: Temperature 36.9, pulse 88, respirations 20, blood pressure 110/58. He is noted to have dense right-sided hemiparesis. Transfers are max assist. He has been unable to ambulate. Bed mobility, mod assist, lower body dressing dependent. Speech therapy has mild comprehensive deficits, mechanical soft diet with thin liquids. ASSESSMENT: 1. Acute recent lacunar infarct, left basal ganglia. 2. Right hemiparesis. 3. Right hemianopsia. 4. Aphasia. 5. Coronary artery disease, status post history of CABG grafting. 6. Hypertension. 7. Hyperlipidemia. 8. Diabetes mellitus. type 2. 9. History of gout. 10. Electrolyte abnormalities. PLAN: The overall plan of care is based on the preadmission screen, post-admission physician evaluation and information garnered from therapy assessments. 1. Estimated length of stay is probably at least 3 weeks and likely longer as he is at a lower functional level. 2. Medical prognosis is reasonably good. 3. Anticipated interventions includes the interdisciplinary acute inpatient rehabilitation program with PT, OT, speech working with him, rehab nursing manager regarding medication management, skin care prophylaxis, bowel and bladder issues and nursing education. We will have the interdisciplinary team involved and the ergonomics consultant physicians. 4. Anticipated functional outcomes would be to hopefully achieve independence at a wheelchair level at least initially and then progress from there. 5. Discharge destination would be to try to get him back to the home setting where he lives in a house with his . 6. Expected therapy by discipline includes PT and OT and speech 1 hour per day [address] [address] REHAB UNIT PLAN OF CARE Name: AKANKSHAROLAND Room #: 515-P [facility] IN M.R.#: [id number] Admission: 09/11/17 Attend Phys: Saroj Puente MD Discharge: Date of : 47 Report #: [id number] each five days a week throughout the duration of the acute inpatient rehabilitation stay. <ELECTRONICALLY SIGNED> By: aSroj Puente MD 09/17/17 1504 1223 1759 Saroj Puente MD /PMT
--- NOTE | ~2017-09-11 | HC ---
[facility] [place] [address] CONSULTATION Name: ROLAND VALE Room #: 515-P [facility] IN M.R.#: [id number] Admission: 09/11/17 Attend Phys: Saroj Puente MD Discharge: Date of : 47 Report #: [id number] THIS REPORT FOR: //name// CC: Saroj Elizondo DATE OF SERVICE: 09/14/2017 NEUROBEHAVIORAL STATUS EXAM ATTENDING PHYSICIAN: Saroj Puente MD MINERAL SURVEYOR: Mitchell Hager PhD CLINICAL PRESENTATION: The patient is a 71-year-old male admitted to [facility] for comprehensive inpatient rehabilitation program to improve functional mobility, activities of daily living and self-care and mental status secondary to deficits from a cerebrovascular accident. He has a several week history of multiple TIAs that eventually resulted in a more acute vascular event. His medical history includes type 2 diabetes, coronary artery bypass graft in 2013, congestive heart failure and cardiomyopathy. His admission assessment also includes a right hemiparesis, lacunar infarct in the left basal ganglia, right hemianopsia, aphasia, hypotension, hyperlipidemia and electrolyte abnormalities along with a history of gout. A complete description of his medical condition and history can be found in his medical record. Neuropsychological consultation was requested to provide assistance in the assessment of cognitive and emotional status and to provide recommendations and services. Prior to this most recent medical event, he was living independently in his home with his . He has 2 children. One child lives within the [place] area and one in [place]. 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 He does not have a history of alcohol/drug abuse or prior treatment for mood disorder. TECHNIQUES UTILIZED: Clinical interview, review of medical records, staff consultation and behavioral observation, mini mental and family interview -- daughter and , mini mental status exam 2 standard version. EXAMINATION FINDINGS: The patient was alert and cooperative with the assessment. He accurately described the reason for his hospitalization. There is no evidence of aphasia, but rather dysarthria. Auditory comprehension was within normal limits. He presents with a flaccid right upper extremity and the right lower extremity. He does not have an amnesia surrounding his admission. [facility] [address] [place] [address] CONSULTATION Name: ROLAND VALE Room #: 515-P [facility] IN M.R.#: [id number] Admission: 09/11/17 Attend Phys: Saroj Puente MD Discharge: Date of : 47 Report #: [id number] He is described as having periods of increased anxiety as he is concerned about his recovery and ability to return to independent living. There is no report from family or patient of difficulty with memory, concentration, sleep or appetite. An improvement in cognition has been noted by the family throughout his recovery. His performance on the MMSE 2 brief version is within normal limits with a raw score of 14/16. He was 3/3 for initial registration, 5/5 for orientation to time, 4/[address] and 2/3 for immediate recall of 3 items after a brief time delay and distraction. Performance declined on the MMSE 2 standard version to a raw score of 24/30. He was 2/5 for serial 7's. Sustained concentration was effortful and difficult with serial 7's. Naming, repetition and auditory comprehension were within normal limits. He was able to read and follow a single command. The patient was able to dictate a sentence. As a result of right upper extremity weakness, he was not asked to construct or engage in visual spatial construction. 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 Unspecified anxiety disorder. RECOMMENDATIONS: The patient will benefit with further neuropsychological testing upon discharge home as an outpatient to clarify the severity of cognitive deficits. The assessment should be approximately 3 months post-stroke. He will need assistance in the management of medication and nutrition to ensure safety. Driving will need to be discontinued until a more full recovery is obtained and abilities assessed. Recognition of achieved goals will assist self confidence. Thank you very much for allowing me to provide the consultation on this patient. <ELECTRONICALLY SIGNED> By: Mitchell Hager, PhD 09/18/17 1931 1530 Mitchell Hager, PhD /nt
--- NOTE | ~2017-09-11 | H ---
[facility] [place] [address] HISTORY AND PHYSICAL Name: ROLAND VALE Room #: 515-P ADM IN M.R.#: [id number] Admission: 09/11/17 Attend Phys: Saroj Puente MD Discharge: Date of : 47 Report #: [id number] THIS REPORT FOR: //name// CC: Saroj Elizondo DATE OF SERVICE: 09/11/2017 CHIEF COMPLAINT:CVA Admission history and physical for inpatient rehabilitation. HISTORY OF PRESENT ILLNESS: This is a 71-year-old gentleman, admitted on 09/09/2017 to [facility] with complaints of right-sided weakness, aphasia and right-sided visual changes. MRI scan showed acute recent lacunar type infarct of the left basal ganglia. He was evaluated by Neurology. He was found to have 50% stenosis of the left carotid artery. He underwent AMANDA with ejection fraction 45-50%. No masses or clots in the atria and no shunting. He had an exacerbation of his symptoms when his systolic blood pressure dropped to 110 after receiving a beta reuben. No surgical interventions are warranted. Neurology recommends blood pressure control and aggressive treatment of his diabetes and hyperlipidemia. He will continue on Plavix. Due to remaining right hemiparesis and weakness He is discharged to inpatient rehab for further therapies. Today, he is seen in his room and expresses concern for his right side of his body, unable to move. He reports some mild pain in his right upper extremity that he feels a spasm-type pain. He denies needing any medication for it. He denies dizziness or headache. He continues to report right-sided visual defects. He did note some coughing with thin liquids when using a straw this morning with speech therapy. Otherwise, denies shortness of breath or chest pain. No nausea or constipation. No numbness or tingling. He is having no voiding difficulties. PAST MEDICAL HISTORY: TIA, type 2 diabetes, coronary artery bypass graft in 2014, congestive heart failure, cardiomyopathy. PAST SURGICAL HISTORY: Cholecystectomy as well as CABG above. ALLERGIES: NONSTEROIDALS, lincomycin, ramipril . SOCIAL HISTORY: He lives in a house with his . Bedroom is on the second floor. He has 2 steps to enter and 12 steps inside. He used no assistive devices premorbidly. His does not work outside the home. He quit smoking a little over one year ago. He is a nondrinker. He is a full code status. CURRENT MEDICATIONS: Vitamin B12 of 1000 mcg daily subQ for 7 days, Plavix 75 mg daily, glipizide 10 mg in the morning, Humalog sliding [place] [address] HISTORY AND PHYSICAL Name: ROLAND VALE Room #: 515-P [facility] IN M.R.#: [id number] Admission: 09/11/17 Attend Phys: Saroj Puente MD Discharge: Date of : 47 Report #: [id number] bedtime, Lovenox 40 mg subcutaneous at bedtime, Lipitor 80 mg at bedtime. Glucagon and dextrose p.r.n. Carvedilol 3.125 mg twice a day, is currently on hold. Tylenol 650 q. 4 hours p.r.n., senna 1 tablet daily p.r.n., Colace 100 mg twice a day p.r.n. REVIEW OF SYSTEMS: Remainder of his 12-point review of systems negative except as listed in HPI. PHYSICAL EXAMINATION: VITAL SIGNS: Blood pressure 108/64, temperature 37.4, pulse 74, respirations 18, pulse ox 99% saturation on room air. GENERAL: He is awake. He is alert and oriented x 4, very pleasant gentleman. He appears in no acute distress. NEUROLOGICAL: Slightly depressed right nasolabial fold, right upper quadrant hemianopsia, mild dysarthria, right upper and right lower extremity flaccid. Left upper and left lower extremity, he has functional range of motion. There is no clonus. He has mild cognitive and memory deficits. He scored 26/30 on the MoCA. He was mod assist for sit to stand and assist x 2 for bilateral lower extremity dressing. HEART: Regular rate and rhythm. He has a positive murmur. CHEST: Lungs are clear to auscultation bilaterally. No crackles, no wheeze. ABDOMEN: Bowel sounds are positive. He is soft, nontender, nondistended. EXTREMITIES: No edema, 2+ pedal pulses. SKIN: Warm, dry and intact. No wounds or rash. LABORATORY DATA: On 09/12/2017, sodium 134, potassium 3.7, BUN 9, creatinine 0.8, magnesium 1.7, calcium 9.2, glucose 210. Vitamin B12 of 195. WBC is 10.4, hemoglobin 14.0, hematocrit 40.2, platelets 349. Uric acid 3.9. ASSESSMENT: 1. Recent lacunar infarct, left basal ganglia CVA. 2. Right hemiparesis. 3. Right hemianopsia. 4. Dysphagia. 5. Coronary artery disease, status post history of coronary artery bypass grafting. 6. Hypotension. 7. Hyperlipidemia. 8. Type 2 diabetes mellitus. 9. History of gout. 10. Electrolyte abnormalities. PLAN: The patient has been admitted to inpatient rehabilitation to involve interdisciplinary therapy approach. We will continue to have the hospitalist [address] [place] [address] HISTORY AND PHYSICAL Name: AKANKSHAROLAND Room #: 515-P ADM IN M.R.#: [id number] Admission: 09/11/17 Attend Phys: Saroj Puente MD Discharge: Date of : 47 Report #: [id number] team manage his multiple comorbidities along with having Neurology follow for any further recommendations. <ELECTRONICALLY SIGNED> By: KRISTEL Mayer 09/15/17 1352 1248 1347 KRISTEL Mayer /nt
[2017-09-11] MEDS ORDERED: TYLENOL325 MG PO (13:06)
[2017-09-11] MEDS ORDERED: ENOXAPARIN40 MG/0.1 SUBQ (13:06)
[2017-09-11 18:05] VITALS: BP 123/63
[2017-09-11 19:55] VITALS: BP 137/77
[2017-09-12 06:20] LABS: HEMATOCRIT 40.2 % (42.0-52.0); MCH 33.2 pg (26.0-34.0); MCHC 34.7 g/dL (28.0-37.0); MCV 95.5 fL (80.0-100.0); RBC 4.21 mil/uL (4.50-6.00); RDW 13.1 % (10.5-14.5); WBC 10.4 thou/uL (4.0-11.0)
[2017-09-12 06:33] LABS: CALCIUM 9.2 mg/dL (8.5-10.1); CREATININE 0.8 mg/dL (0.7-1.3); MAGNESIUM 1.7 mg/dL (1.8-2.4); POTASSIUM 3.7 mmol/L (3.5-5.1)
[2017-09-12 07:35] VITALS: BP 108/64
[2017-09-12 20:30] VITALS: BP 130/66
[2017-09-13 01:11] LABS: GLYCOHEMOGLOBIN (HGB A1C) 9.1 % (4.8-5.6)
[2017-09-13 06:24] LABS: ABSOLUTE NEUTROPHILS 7.2 thou/uL (1.4-8.2); BASOPHILS 0.8 % (0.0-2.0); EOSINOPHILS 1.9 % (0.0-3.0); HEMATOCRIT 37.8 % (42.0-52.0); HEMOGLOBIN 12.8 gm/dL (14.0-18.0); LYMPHOCYTES 22.1 % (24.0-44.0); MCH 32.7 pg (26.0-34.0); MCV 96.2 fL (80.0-100.0); MONOCYTES 11.7 % (1.0-8.0); PLATELET COUNT 337 thou/uL (150-400); POLYS 63.5 % (36.0-66.0); RBC 3.92 mil/uL (4.50-6.00); RDW 13.4 % (10.5-14.5); WBC 11.4 thou/uL (4.0-11.0)
[2017-09-13 06:34] LABS: CALCIUM 9.1 mg/dL (8.5-10.1); CREATININE 0.9 mg/dL (0.7-1.3); MAGNESIUM 1.7 mg/dL (1.8-2.4); POTASSIUM 3.5 mmol/L (3.5-5.1)
[2017-09-13 08:01] VITALS: BP 110/58
[2017-09-13 15:00] LABS: BF NUCLEATED CELLS 9747; BF RBC 16272
[2017-09-13 15:02] LABS: CLARITY CLOUDY; COLOR ORANGE
[2017-09-13 15:03] LABS: SOURCE RT KNEE
[2017-09-13 16:07] LABS: BF CRYSTALS No Crystals seen
[2017-09-13 16:14] LABS: BF MACROPHAGE 19; BF NEUTROPHILS 79
[2017-09-13 20:00] VITALS: BP 103/54
[2017-09-14 08:00] VITALS: BP 120/63
[2017-09-14 19:50] VITALS: BP 161/69
[2017-09-15 07:45] VITALS: BP 116/69
[2017-09-15 20:00] VITALS: BP 154/68
[2017-09-16 05:33] LABS: BASOPHILS 0.9 % (0.0-2.0); HEMATOCRIT 35.2 % (42.0-52.0); HEMOGLOBIN 12.1 gm/dL (14.0-18.0); LYMPHOCYTES 26.3 % (24.0-44.0); MCH 33.2 pg (26.0-34.0); MCHC 34.4 g/dL (28.0-37.0); MCV 96.6 fL (80.0-100.0); MONOCYTES 11.5 % (1.0-8.0); PLATELET COUNT 419 thou/uL (150-400); POLYS 58.3 % (36.0-66.0); RBC 3.64 mil/uL (4.50-6.00); WBC 8.5 thou/uL (4.0-11.0)
[2017-09-16 05:36] LABS: CALCIUM 9.3 mg/dL (8.5-10.1); MAGNESIUM 1.9 mg/dL (1.8-2.4); POTASSIUM 4.1 mmol/L (3.5-5.1)
[2017-09-16 09:11] VITALS: BP 112/57
[2017-09-16 19:58] VITALS: BP 148/77
[2017-09-17 07:50] VITALS: BP 121/55
[2017-09-17 19:40] VITALS: BP 124/63
[2017-09-18 07:55] VITALS: BP 116/62
[2017-09-18 14:29] LABS: HEMATOCRIT 37.9 % (42.0-52.0); HEMOGLOBIN 12.7 gm/dL (14.0-18.0); MCH 32.6 pg (26.0-34.0); MCHC 33.6 g/dL (28.0-37.0); MCV 97.1 fL (80.0-100.0); RBC 3.91 mil/uL (4.50-6.00); WBC 11.6 thou/uL (4.0-11.0)
[2017-09-18 14:39] LABS: CALCIUM 9.7 mg/dL (8.5-10.1); CREATININE 1.1 mg/dL (0.7-1.3); MAGNESIUM 1.8 mg/dL (1.8-2.4); POTASSIUM 3.8 mmol/L (3.5-5.1)
[2017-09-18 19:32] VITALS: BP 141/75
[2017-09-19 08:45] VITALS: BP 107/61
[2017-09-19 19:35] VITALS: BP 115/56
[2017-09-20 09:08] VITALS: BP 117/76
[2017-09-20 19:40] VITALS: BP 110/70
[2017-09-21 10:35] VITALS: BP 109/68
[2017-09-21 20:00] VITALS: BP 95/49
[2017-09-22 08:00] VITALS: BP 93/50
[2017-09-22 19:35] VITALS: BP 123/66
[2017-09-23 08:45] VITALS: BP 96/57
[2017-09-23 19:10] VITALS: BP 135/80
[2017-09-24 04:31] LABS: ABSOLUTE NEUTROPHILS 4.2 thou/uL (1.4-8.2); BASOPHILS 1.8 % (0.0-2.0); EOSINOPHILS 3.7 % (0.0-3.0); HEMATOCRIT 38.8 % (42.0-52.0); HEMOGLOBIN 13.3 gm/dL (14.0-18.0); MCH 32.9 pg (26.0-34.0); MCHC 34.3 g/dL (28.0-37.0); MCV 96.1 fL (80.0-100.0); MONOCYTES 7.2 % (1.0-8.0); PLATELET COUNT 561 thou/uL (150-400); POLYS 49.3 % (36.0-66.0); RBC 4.04 mil/uL (4.50-6.00); RDW 12.9 % (10.5-14.5); WBC 8.4 thou/uL (4.0-11.0)
[2017-09-24 04:35] LABS: CALCIUM 9.7 mg/dL (8.5-10.1); CREATININE 1.1 mg/dL (0.7-1.3); MAGNESIUM 1.7 mg/dL (1.8-2.4); POTASSIUM 4.1 mmol/L (3.5-5.1)
[2017-09-24 08:05] VITALS: BP 101/55
[2017-09-24 20:00] VITALS: BP 115/64
[2017-09-25 08:17] VITALS: BP 103/59
[2017-09-25 20:33] VITALS: BP 114/62
[2017-09-26 06:01] LABS: EOSINOPHILS 3.3 % (0.0-3.0); HEMATOCRIT 37.3 % (42.0-52.0); HEMOGLOBIN 12.7 gm/dL (14.0-18.0); LYMPHOCYTES 39.9 % (24.0-44.0); MCH 32.5 pg (26.0-34.0); MCHC 34.1 g/dL (28.0-37.0); MCV 95.3 fL (80.0-100.0); MONOCYTES 6.6 % (1.0-8.0); PLATELET COUNT 581 thou/uL (150-400); POLYS 48.2 % (36.0-66.0); RBC 3.91 mil/uL (4.50-6.00); WBC 8.3 thou/uL (4.0-11.0)
[2017-09-26 06:14] LABS: CALCIUM 9.4 mg/dL (8.5-10.1); MAGNESIUM 1.5 mg/dL (1.8-2.4); POTASSIUM 4.1 mmol/L (3.5-5.1)
[2017-09-26 10:40] VITALS: BP 111/60
[2017-09-26 20:12] VITALS: BP 108/65
[2017-09-27 08:00] VITALS: BP 102/53
[2017-09-28 09:15] VITALS: BP 103/58
[2017-09-28 19:28] VITALS: BP 121/58
[2017-09-29 04:17] LABS: ABSOLUTE NEUTROPHILS 4.3 thou/uL (1.4-8.2); BASOPHILS 0.7 % (0.0-2.0); EOSINOPHILS 2.6 % (0.0-3.0); HEMATOCRIT 39.2 % (42.0-52.0); HEMOGLOBIN 13.4 gm/dL (14.0-18.0); LYMPHOCYTES 41.8 % (24.0-44.0); MCH 32.7 pg (26.0-34.0); MCHC 34.1 g/dL (28.0-37.0); MCV 95.8 fL (80.0-100.0); MONOCYTES 6.3 % (1.0-8.0); POLYS 48.6 % (36.0-66.0); RBC 4.09 mil/uL (4.50-6.00); RDW 12.9 % (10.5-14.5); WBC 8.9 thou/uL (4.0-11.0)
[2017-09-29 04:20] LABS: PLATELET COUNT 501 thou/uL (150-400)
[2017-09-29 04:28] LABS: CALCIUM 9.4 mg/dL (8.5-10.1); CREATININE 0.9 mg/dL (0.7-1.3); POTASSIUM 4.1 mmol/L (3.5-5.1)
[2017-09-29 08:00] VITALS: BP 90/58
[2017-09-29 19:25] VITALS: BP 134/66
[2017-09-30 08:00] VITALS: BP 103/57
[2017-09-30 19:34] VITALS: BP 130/67
[2017-10-01 05:00] VITALS: BP 118/64
[2017-10-01 07:15] VITALS: BP 121/62
[2017-10-01 19:10] VITALS: BP 119/60
[2017-10-02 07:46] VITALS: BP 120/63
[2017-10-02 19:58] VITALS: BP 107/52
[2017-10-03 08:10] VITALS: BP 120/72
[2017-10-03 20:30] VITALS: BP 110/69
[2017-10-04 07:30] VITALS: BP 122/70
[2017-10-04 20:00] VITALS: BP 114/68
[2017-10-05 07:35] VITALS: BP 114/70
[2017-10-05 20:00] VITALS: BP 127/72
[2017-10-06 06:10] LABS: ABSOLUTE NEUTROPHILS 4.2 thou/uL (1.4-8.2); BASOPHILS 1.1 % (0.0-2.0); EOSINOPHILS 3.8 % (0.0-3.0); HEMATOCRIT 37.1 % (42.0-52.0); HEMOGLOBIN 12.7 gm/dL (14.0-18.0); MCH 32.7 pg (26.0-34.0); MCHC 34.3 g/dL (28.0-37.0); MCV 95.3 fL (80.0-100.0); MONOCYTES 7.3 % (1.0-8.0); PLATELET COUNT 383 thou/uL (150-400); POLYS 51.8 % (36.0-66.0); RBC 3.89 mil/uL (4.50-6.00); RDW 13.3 % (10.5-14.5); WBC 8.1 thou/uL (4.0-11.0)
[2017-10-06 06:19] LABS: CALCIUM 9.3 mg/dL (8.5-10.1); CREATININE 0.8 mg/dL (0.7-1.3); MAGNESIUM 1.3 mg/dL (1.8-2.4); POTASSIUM 3.6 mmol/L (3.5-5.1)
[2017-10-06 08:00] VITALS: BP 123/59
[2017-10-06] MEDS ORDERED: VITAMIN D1000 UNI1 PO ×2 (08:47→09:37)
[2017-10-06] MEDS ORDERED: METFORMIN HCL500 MG PO ×2 (08:47→09:37)
[2017-10-06] MEDS ORDERED: PROTONIX40 M1 PO ×2 (08:47→09:37)
[2017-10-06] MEDS ORDERED: MAGOX 400400 MG PO ×2 (08:47→09:37)
[2017-10-06] MEDS ORDERED: VITAMIN B-12500 MCG PO ×2 (08:47→09:37)
[2017-10-06] MEDS ORDERED: LIDOPATCH1 EACH TRANSDERM ×2 (08:47→09:37)
[2017-10-06] MEDS ORDERED: CLOPIDOGREL75 MG PO ×2 (08:47→09:37)
[2017-10-06] MEDS ORDERED: ATORVASTATIN CA40 MG PO ×2 (08:47→09:37)
[2017-10-06] MEDS ORDERED: GLUCOTROL5 MG PO ×2 (08:47→09:37)
== END 2017-10-06 13:35 | DRG 56 ==
PROVIDERS: Family Medicine; Internal Medicine; Nurse Practitioner; Orthopaedic Surgery Sports Medicine; Physical Medicine & Rehabilitation
PROC: 0S9C3ZZ Drainage of Right Knee Joint, Percutaneous Approach (ICD-10-PCS; principal; 2017-09-13)
DX: G81.91 Hemiplegia, unspecified affecting right dominant side (principal); I63.9 Cerebral infarction, unspecified; I42.9 Cardiomyopathy, unspecified; R47.01 Aphasia; H53.47 Heteronymous bilateral field defects; I25.10 Atherosclerotic heart disease of native coronary artery without angina pectoris; E78.5 Hyperlipidemia, unspecified; E11.9 Type 2 diabetes mellitus without complications; M10.9 Gout, unspecified; I50.9 Heart failure, unspecified; I11.0 Hypertensive heart disease with heart failure; I95.9 Hypotension, unspecified; R41.9 Unspecified symptoms and signs involving cognitive functions and awareness; F41.9 Anxiety disorder, unspecified; R53.81 Other malaise; M25.561 Pain in right knee; E83.42 Hypomagnesemia; E53.8 Deficiency of other specified B group vitamins; M25.462 Effusion, left knee; M25.461 Effusion, right knee; M25.531 Pain in right wrist; R19.7 Diarrhea, unspecified; Z95.1 Presence of aortocoronary bypass graft; Z90.49 Acquired absence of other specified parts of digestive tract; Z88.8 Allergy status to other drugs, medicaments and biological substances; Z87.891 Personal history of nicotine dependence; Z79.899 Other long term (current) drug therapy; R13.10 Dysphagia, unspecified
CPT/HCPCS: 10112

== ENCOUNTER → 2019-03-30 | Outpatient (CLI) | payer OTHER ==
[~2019-03-30] MED LIST changes: +ENOXAPARIN40 MG/0.1 SUBQ; +GLUCOTROL5 MG PO; +LIDOPATCH1 EACH TRANSDERM; +LISINOPRIL2.5 MG PO; +MAGOX 400400 MG PO; +METFORMIN HCL500 MG PO; +PROTONIX40 M1 PO; +SPIRONOLACTONE25 M1 PO; +TYLENOL325 MG PO; +VITAMIN B-121000 MCG PO; +VITAMIN B-12500 MCG PO; +VITAMIN D1000 UNI1 PO; +VOLTAREN GEL 1100 G2 TOP
== END ==
LOC: HYPER 07:16
DX: T81.89XD Other complications of procedures, not elsewhere classified, subsequent encounter (principal); E11.621 Type 2 diabetes mellitus with foot ulcer; L97.412 Non-pressure chronic ulcer of right heel and midfoot with fat layer exposed; L89.613 Pressure ulcer of right heel, stage 3; I70.235 Atherosclerosis of native arteries of right leg with ulceration of other part of foot; L97.511 Non-pressure chronic ulcer of other part of right foot limited to breakdown of skin; E11.40 Type 2 diabetes mellitus with diabetic neuropathy, unspecified; I25.10 Atherosclerotic heart disease of native coronary artery without angina pectoris; I25.2 Old myocardial infarction; I11.0 Hypertensive heart disease with heart failure; I50.20 Unspecified systolic (congestive) heart failure; I42.9 Cardiomyopathy, unspecified; I69.90 Unspecified sequelae of unspecified cerebrovascular disease; M62.81 Muscle weakness (generalized); M10.9 Gout, unspecified; R26.2 Difficulty in walking, not elsewhere classified; R54 Age-related physical debility; Z95.1 Presence of aortocoronary bypass graft; Z87.891 Personal history of nicotine dependence; Z79.84 Long term (current) use of oral hypoglycemic drugs; Z79.82 Long term (current) use of aspirin; Y83.8 Other surgical procedures as the cause of abnormal reaction of the patient, or of later complication, without mention of misadventure at the time of the procedure

== ENCOUNTER → 2019-04-13 | Outpatient (CLI) | payer OTHER ==
[~2019-04-13] MED LIST changes: +ASA81BEC PO
== END ==
LOC: HYPER 08:00
DX: T81.89XD Other complications of procedures, not elsewhere classified, subsequent encounter (principal); E11.621 Type 2 diabetes mellitus with foot ulcer; I70.235 Atherosclerosis of native arteries of right leg with ulceration of other part of foot; L97.511 Non-pressure chronic ulcer of other part of right foot limited to breakdown of skin; E11.40 Type 2 diabetes mellitus with diabetic neuropathy, unspecified; I10 Essential (primary) hypertension; I25.2 Old myocardial infarction; I25.10 Atherosclerotic heart disease of native coronary artery without angina pectoris; I42.9 Cardiomyopathy, unspecified; I69.90 Unspecified sequelae of unspecified cerebrovascular disease; M10.9 Gout, unspecified; M62.81 Muscle weakness (generalized); R54 Age-related physical debility; R26.2 Difficulty in walking, not elsewhere classified; Z95.1 Presence of aortocoronary bypass graft; Z79.82 Long term (current) use of aspirin; Z79.84 Long term (current) use of oral hypoglycemic drugs; Z87.891 Personal history of nicotine dependence; Y83.8 Other surgical procedures as the cause of abnormal reaction of the patient, or of later complication, without mention of misadventure at the time of the procedure

== ENCOUNTER → 2019-04-27 | Outpatient (CLI) | payer OTHER | LOC: HYPER 10:27 | DX: T81.89XD Other complications of procedures, not elsewhere classified, subsequent encounter (principal); E11.621 Type 2 diabetes mellitus with foot ulcer; L97.412 Non-pressure chronic ulcer of right heel and midfoot with fat layer exposed; L89.613 Pressure ulcer of right heel, stage 3; I70.235 Atherosclerosis of native arteries of right leg with ulceration of other part of foot; L97.511 Non-pressure chronic ulcer of other part of right foot limited to breakdown of skin; I70.345 Atherosclerosis of unspecified type of bypass graft(s) of the left leg with ulceration of other part of foot; L97.521 Non-pressure chronic ulcer of other part of left foot limited to breakdown of skin; I69.90 Unspecified sequelae of unspecified cerebrovascular disease; E11.40 Type 2 diabetes mellitus with diabetic neuropathy, unspecified; I10 Essential (primary) hypertension; I25.10 Atherosclerotic heart disease of native coronary artery without angina pectoris; I25.2 Old myocardial infarction; M62.81 Muscle weakness (generalized); I42.9 Cardiomyopathy, unspecified; M10.9 Gout, unspecified; R26.2 Difficulty in walking, not elsewhere classified; R54 Age-related physical debility; Z95.1 Presence of aortocoronary bypass graft; Z79.84 Long term (current) use of oral hypoglycemic drugs; Z79.82 Long term (current) use of aspirin; Z87.891 Personal history of nicotine dependence; Y83.8 Other surgical procedures as the cause of abnormal reaction of the patient, or of later complication, without mention of misadventure at the time of the procedure ==

== ENCOUNTER → 2019-05-04 | Outpatient (CLI) | payer OTHER | LOC: HYPER 09:33 | DX: T81.89XD Other complications of procedures, not elsewhere classified, subsequent encounter (principal); E11.621 Type 2 diabetes mellitus with foot ulcer; I70.345 Atherosclerosis of unspecified type of bypass graft(s) of the left leg with ulceration of other part of foot; L97.521 Non-pressure chronic ulcer of other part of left foot limited to breakdown of skin; I69.90 Unspecified sequelae of unspecified cerebrovascular disease; E11.40 Type 2 diabetes mellitus with diabetic neuropathy, unspecified; I10 Essential (primary) hypertension; I25.10 Atherosclerotic heart disease of native coronary artery without angina pectoris; I25.2 Old myocardial infarction; M62.81 Muscle weakness (generalized); I42.9 Cardiomyopathy, unspecified; E78.00 Pure hypercholesterolemia, unspecified; M10.9 Gout, unspecified; R54 Age-related physical debility; R26.2 Difficulty in walking, not elsewhere classified; Z95.1 Presence of aortocoronary bypass graft; Z86.73 Personal history of transient ischemic attack (TIA), and cerebral infarction without residual deficits; Z79.84 Long term (current) use of oral hypoglycemic drugs; Z79.82 Long term (current) use of aspirin; Z87.891 Personal history of nicotine dependence; Y83.8 Other surgical procedures as the cause of abnormal reaction of the patient, or of later complication, without mention of misadventure at the time of the procedure ==

== ENCOUNTER → 2019-05-05 | Outpatient (CLI) | payer OTHER ==
[~2019-05-05] VITALS: Ht 177.8 cm; Wt 80.3 kg
[2019-05-05 10:04] LABS: HEMATOCRIT 34.9 % (42.0-52.0); HEMOGLOBIN 11.6 gm/dL (14.0-18.0); MCH 33.7 pg (26.0-34.0); MCHC 33.2 g/dL (28.0-37.0); MCV 101.3 fL (80.0-100.0); RBC 3.45 mil/uL (4.50-6.00); RDW 14.2 % (10.5-14.5); WBC 6.5 thou/uL (4.0-11.0)
[2019-05-05 10:16] LABS: CALCIUM 10.1 mg/dL (8.5-10.1); CREATININE 0.9 mg/dL (0.7-1.3); POTASSIUM 4.4 mmol/L (3.5-5.1)
[2019-05-05 10:17] LABS: PROTIME 10.5 Seconds (9.3-11.4)
[2019-05-05 13:00] VITALS: BP 142/58
[2019-05-05 13:15] VITALS: BP 148/59
[2019-05-05 13:46] VITALS: BP 148/59
[2019-05-05 14:37] VITALS: BP 154/92
== END | disposition home or self-care (01) ==
LOC: CATH 09:26
PROVIDERS: Nuclear Medicine Nuclear Cardiology
DX: I70.238 Atherosclerosis of native arteries of right leg with ulceration of other part of lower leg (principal); I70.1 Atherosclerosis of renal artery; L97.419 Non-pressure chronic ulcer of right heel and midfoot with unspecified severity; I11.0 Hypertensive heart disease with heart failure; I50.22 Chronic systolic (congestive) heart failure; I25.10 Atherosclerotic heart disease of native coronary artery without angina pectoris; E78.5 Hyperlipidemia, unspecified; I25.2 Old myocardial infarction; E11.9 Type 2 diabetes mellitus without complications; I42.9 Cardiomyopathy, unspecified; Z98.890 Other specified postprocedural states; Z95.1 Presence of aortocoronary bypass graft; Z86.73 Personal history of transient ischemic attack (TIA), and cerebral infarction without residual deficits; Z90.49 Acquired absence of other specified parts of digestive tract; Z79.4 Long term (current) use of insulin; Z88.8 Allergy status to other drugs, medicaments and biological substances; Z79.82 Long term (current) use of aspirin; Z79.899 Other long term (current) drug therapy

== ENCOUNTER → 2019-05-25 | Outpatient (CLI) | payer OTHER | LOC: HYPER 11:30 | DX: T81.89XD Other complications of procedures, not elsewhere classified, subsequent encounter (principal); S90.414D Abrasion, right lesser toe(s), subsequent encounter; E11.621 Type 2 diabetes mellitus with foot ulcer; L89.613 Pressure ulcer of right heel, stage 3; L97.412 Non-pressure chronic ulcer of right heel and midfoot with fat layer exposed; I70.345 Atherosclerosis of unspecified type of bypass graft(s) of the left leg with ulceration of other part of foot; L97.521 Non-pressure chronic ulcer of other part of left foot limited to breakdown of skin; I70.235 Atherosclerosis of native arteries of right leg with ulceration of other part of foot; L97.511 Non-pressure chronic ulcer of other part of right foot limited to breakdown of skin; E11.42 Type 2 diabetes mellitus with diabetic polyneuropathy; E11.51 Type 2 diabetes mellitus with diabetic peripheral angiopathy without gangrene; E78.1 Pure hyperglyceridemia; I69.90 Unspecified sequelae of unspecified cerebrovascular disease; I25.10 Atherosclerotic heart disease of native coronary artery without angina pectoris; I11.0 Hypertensive heart disease with heart failure; I50.20 Unspecified systolic (congestive) heart failure; I25.2 Old myocardial infarction; I42.9 Cardiomyopathy, unspecified; R26.2 Difficulty in walking, not elsewhere classified; R54 Age-related physical debility; M10.9 Gout, unspecified; M62.81 Muscle weakness (generalized); Z79.84 Long term (current) use of oral hypoglycemic drugs; Z87.891 Personal history of nicotine dependence; Z95.1 Presence of aortocoronary bypass graft; Z79.82 Long term (current) use of aspirin; Y83.8 Other surgical procedures as the cause of abnormal reaction of the patient, or of later complication, without mention of misadventure at the time of the procedure; X58.XXXD Exposure to other specified factors, subsequent encounter ==

== ENCOUNTER → 2019-06-14 | Outpatient (CLI) | payer OTHER | LOC: HYPER 09:58 | DX: T81.89XD Other complications of procedures, not elsewhere classified, subsequent encounter (principal); I70.234 Atherosclerosis of native arteries of right leg with ulceration of heel and midfoot; E11.621 Type 2 diabetes mellitus with foot ulcer; L89.613 Pressure ulcer of right heel, stage 3; L97.412 Non-pressure chronic ulcer of right heel and midfoot with fat layer exposed; I70.235 Atherosclerosis of native arteries of right leg with ulceration of other part of foot; L97.511 Non-pressure chronic ulcer of other part of right foot limited to breakdown of skin; I70.345 Atherosclerosis of unspecified type of bypass graft(s) of the left leg with ulceration of other part of foot; L97.521 Non-pressure chronic ulcer of other part of left foot limited to breakdown of skin; E11.42 Type 2 diabetes mellitus with diabetic polyneuropathy; E11.51 Type 2 diabetes mellitus with diabetic peripheral angiopathy without gangrene; L84 Corns and callosities; R54 Age-related physical debility; I25.2 Old myocardial infarction; I69.90 Unspecified sequelae of unspecified cerebrovascular disease; M10.9 Gout, unspecified; I11.0 Hypertensive heart disease with heart failure; I50.20 Unspecified systolic (congestive) heart failure; I25.10 Atherosclerotic heart disease of native coronary artery without angina pectoris; Z95.1 Presence of aortocoronary bypass graft; Z87.891 Personal history of nicotine dependence; Z79.84 Long term (current) use of oral hypoglycemic drugs; Z79.82 Long term (current) use of aspirin; Z89.422 Acquired absence of other left toe(s); Y83.8 Other surgical procedures as the cause of abnormal reaction of the patient, or of later complication, without mention of misadventure at the time of the procedure ==

== ENCOUNTER → 2019-06-28 | Outpatient (CLI) | payer OTHER | LOC: HYPER 10:01 | DX: T81.89XD Other complications of procedures, not elsewhere classified, subsequent encounter (principal); I70.234 Atherosclerosis of native arteries of right leg with ulceration of heel and midfoot; E11.621 Type 2 diabetes mellitus with foot ulcer; L97.412 Non-pressure chronic ulcer of right heel and midfoot with fat layer exposed; L89.613 Pressure ulcer of right heel, stage 3; I70.235 Atherosclerosis of native arteries of right leg with ulceration of other part of foot; L97.511 Non-pressure chronic ulcer of other part of right foot limited to breakdown of skin; I70.345 Atherosclerosis of unspecified type of bypass graft(s) of the left leg with ulceration of other part of foot; E11.51 Type 2 diabetes mellitus with diabetic peripheral angiopathy without gangrene; E11.42 Type 2 diabetes mellitus with diabetic polyneuropathy; L84 Corns and callosities; I69.90 Unspecified sequelae of unspecified cerebrovascular disease; I25.10 Atherosclerotic heart disease of native coronary artery without angina pectoris; R54 Age-related physical debility; I25.2 Old myocardial infarction; M10.9 Gout, unspecified; I11.0 Hypertensive heart disease with heart failure; I50.20 Unspecified systolic (congestive) heart failure; Z79.84 Long term (current) use of oral hypoglycemic drugs; Z79.82 Long term (current) use of aspirin; Z87.891 Personal history of nicotine dependence; Z95.1 Presence of aortocoronary bypass graft; Z89.422 Acquired absence of other left toe(s); Y83.8 Other surgical procedures as the cause of abnormal reaction of the patient, or of later complication, without mention of misadventure at the time of the procedure ==

== ENCOUNTER → 2019-11-23 | Outpatient (CLI) | payer OTHER | LOC: SJCVCIMAG 10:53 | PROVIDERS: ATTEND Nuclear Medicine Nuclear Cardiology | DX: I70.203 Unspecified atherosclerosis of native arteries of extremities, bilateral legs (principal); I25.10 Atherosclerotic heart disease of native coronary artery without angina pectoris; I10 Essential (primary) hypertension; E78.00 Pure hypercholesterolemia, unspecified; I25.2 Old myocardial infarction; Z95.1 Presence of aortocoronary bypass graft; Z79.899 Other long term (current) drug therapy; Z87.891 Personal history of nicotine dependence ==

== ENCOUNTER 2020-09-30 17:01 | Emergency (ER) | payer OTHER ==
[~2020-09-30] VITALS: Ht 177.8 cm; Wt 77.1 kg
[2020-09-30 17:26] LABS: ABSOLUTE NEUTROPHILS 3.5 thou/uL (1.4-8.2); EOSINOPHILS 5.5 % (0.0-3.0); HEMATOCRIT 32.4 % (42.0-52.0); HEMOGLOBIN 11.4 gm/dL (14.0-18.0); LYMPHOCYTES 34.2 % (24.0-44.0); MCH 34.6 pg (26.0-34.0); MCHC 35.1 g/dL (28.0-37.0); MCV 98.7 fL (80.0-100.0); MONOCYTES 8.6 % (1.0-8.0); PLATELET COUNT 283 thou/uL (150-400); POLYS 49.7 % (36.0-66.0); RBC 3.29 mil/uL (4.50-6.00); RDW 13.7 % (10.5-14.5); WBC 7.1 thou/uL (4.0-11.0)
[2020-09-30 17:30] LABS: CALCIUM 9.3 mg/dL (8.5-10.1); CREATININE 1.2 mg/dL (0.7-1.3); POTASSIUM 4.1 mmol/L (3.5-5.1)
[2020-09-30 18:20] LABS: URINE BILIRUBIN NEGATIVE (Negative); URINE BLOOD NEGATIVE (Negative); URINE CLARITY CLEAR; URINE COLOR YELLOW; URINE GLUCOSE-RANDOM* NEGATIVE (Negative); URINE KETONES NEGATIVE (Negative); URINE LEUKOCYTES-REFLEX TRACE (Negative); URINE NITRITE-REFLEX NEGATIVE (Negative); URINE PROTEIN (DIPSTICK) 2+ (Negative); URINE SPECIFIC GRAVITY >= 1.030 (1.005-1.035)
[2020-09-30 18:36] LABS: SQUAMOUS 0-3 Few /LPF (0-3)
[2020-09-30 18:38] LABS: HYALINE CASTS 0-3 Few /LPF (None Seen); URINE WBC-REFLEX 0-5 Rare /HPF (0-5)
[2020-09-30 18:39] LABS: BACTERIA-REFLEX 1-9 Few /HPF (None Seen); CRYSTALS None Seen /LPF (None Seen)
[2020-09-30 18:47] LABS: URINE RBC None Seen /HPF (NONE SEEN)
[2020-09-30] MEDS ORDERED: NORCO5 PO (18:55)
[2020-09-30 19:08] VITALS: BP 166/65
--- NOTE | 2020-10-01 09:06 | EKG ---
[place] [address] [facility] [place] [address] ELECTROCARDIOGRAM REPORT Name: ROLAND VALE [id number] Admission: 09/30/20 Attend Phys: Discharge: 09/30/20 Date of : 47 Report #: [id number] [facility] ED Test Date: 2020-09-30 Test Time: 17:21:06 Pat Name: ROLAND VALE Department: Room: Gender: M Health Inspector Food: SVETA : 1945 Requested By: Jossy Thomas Order Number: [id number] MD: Jay Lang Measurements Intervals [place] Rate: 61 P: [place]: QRS: -64 QRSD: 174 T: 59 QT: 451 QTc: 455 Interpretive Statements NSR RBBB and LAFB Probable left ventricular hypertrophy Compared to ECG 11/20/2017 13:42:01 Sinus rhythm no longer present Myocardial infarct finding no longer present Electronically Signed On 10-01-2020 9:05:57 CDT by Jay Lang [email or web address] <ELECTRONICALLY SIGNED> By: Jay Lang MD, [facility] 10/01/20904 20 20 Jay Lang MD, FAC /EPI
== END 2020-09-30 19:08 | disposition home or self-care (01) ==
LOC: ER 17:01
PROVIDERS: Emergency Medicine
DX: S52.591A Other fractures of lower end of right radius, initial encounter for closed fracture (principal); S52.611A Displaced fracture of right ulna styloid process, initial encounter for closed fracture; R42 Dizziness and giddiness; E11.9 Type 2 diabetes mellitus without complications; I50.9 Heart failure, unspecified; Z86.73 Personal history of transient ischemic attack (TIA), and cerebral infarction without residual deficits; Z90.49 Acquired absence of other specified parts of digestive tract; Z79.899 Other long term (current) drug therapy; Z79.82 Long term (current) use of aspirin; Z88.6 Allergy status to analgesic agent; Z88.1 Allergy status to other antibiotic agents; Z87.891 Personal history of nicotine dependence; W18.39XA Other fall on same level, initial encounter; Y93.89 Activity, other specified; Y92.098 Other place in other non-institutional residence as the place of occurrence of the external cause; Y99.8 Other external cause status

== ENCOUNTER → 2021-04-17 | Outpatient (CLI) | payer OTHER ==
[~2021-04-17] MED LIST changes: +NORCO5 PO
== END ==
LOC: SJCVCIMAG 13:43
PROVIDERS: ATTEND Nuclear Medicine Nuclear Cardiology
DX: I65.23 Occlusion and stenosis of bilateral carotid arteries (principal); I73.9 Peripheral vascular disease, unspecified; I77.9 Disorder of arteries and arterioles, unspecified; I25.10 Atherosclerotic heart disease of native coronary artery without angina pectoris; I10 Essential (primary) hypertension; E78.00 Pure hypercholesterolemia, unspecified; E11.9 Type 2 diabetes mellitus without complications; Z88.8 Allergy status to other drugs, medicaments and biological substances; Z79.82 Long term (current) use of aspirin; Z79.899 Other long term (current) drug therapy; Z87.891 Personal history of nicotine dependence

== ENCOUNTER → 2021-04-30 | Outpatient (CLI) | payer OTHER ==
[~2021-04-30] VITALS: Ht 177.8 cm; Wt 83.0 kg
[~2021-04-30] MED LIST changes: +AMARYL4 MG PO; +BACLOFEN 10MG T10 MG PO
[2021-04-30 09:02] LABS: HEMATOCRIT 32.7 % (42.0-52.0); HEMOGLOBIN 10.9 gm/dL (14.0-18.0); MCH 33.5 pg (26.0-34.0); MCHC 33.4 g/dL (28.0-37.0); MCV 100.4 fL (80.0-100.0); RBC 3.25 mil/uL (4.50-6.00); RDW 13.4 % (10.5-14.5); WBC 7.3 thou/uL (4.0-11.0)
[2021-04-30 09:04] VITALS: BP 162/65
[2021-04-30 09:11] LABS: CALCIUM 9.2 mg/dL (8.5-10.1); CREATININE 1.2 mg/dL (0.7-1.3); POTASSIUM 3.8 mmol/L (3.5-5.1)
== END | disposition home or self-care (01) ==
LOC: CATH 06:20
PROVIDERS: ATTEND Nuclear Medicine Nuclear Cardiology
DX: I70.213 Atherosclerosis of native arteries of extremities with intermittent claudication, bilateral legs (principal); I15.0 Renovascular hypertension; I70.1 Atherosclerosis of renal artery; M79.604 Pain in right leg; M79.605 Pain in left leg; I11.0 Hypertensive heart disease with heart failure; I50.30 Unspecified diastolic (congestive) heart failure; I25.10 Atherosclerotic heart disease of native coronary artery without angina pectoris; E11.9 Type 2 diabetes mellitus without complications; E78.00 Pure hypercholesterolemia, unspecified; I42.9 Cardiomyopathy, unspecified; M10.9 Gout, unspecified; Z98.890 Other specified postprocedural states; Z79.899 Other long term (current) drug therapy; Z86.73 Personal history of transient ischemic attack (TIA), and cerebral infarction without residual deficits; Z95.1 Presence of aortocoronary bypass graft; Z87.891 Personal history of nicotine dependence; Z79.82 Long term (current) use of aspirin